=== PATIENT | male | born 1995 | race Caucasian/White ===

== ENCOUNTER 2016-12-27 13:17 | Emergency (ER) | payer OTHER ==
--- NOTE | ~2016-12-27 | CR126 ---
[facility]. [facility] A Service [facility] RADIOLOGY TEXT RESULTS PATIENT: RENO THORNE LOCATION: SED : [birth year] UNIT #: [id number] AGE: [address]: Josiane Kam APRN SEX: M ORDER DR: [id number] [place] [id number] E MR#: [id number] Acc #: [id number] NAME: RENO THORNE : 1995 SEX: M STUDY DATE/TIME: 12/27/2016 13:30 UNIT: SED ROOM: STUDY DESCRIPTION: CR Foot Complete Min 3 View Lt Attending Physician: Josiane Kam A.P.R.N. Ordering Physician: Josiane Kam A.P.R.N. Primary Care Physician: Tomas Troo Jr.PReneeRDonald MEDICAL IMAGING REPORT This report is preliminary unless electronic signature is present. EXAM Left foot. DATE OF EXAM 12/27/2016 HISTORY 21-year-old male with left foot pain, status post laceration today. Evaluate for foreign body. COMPARISON None. FINDINGS 3 views of the left foot demonstrate no radiopaque foreign bodies. No soft tissue gas. No acute bony abnormality. IMPRESSION 1. No radiopaque foreign bodies. No soft tissue gas. 2. No acute bony abnormality. Dictated by... Ziyad Frye M.D. THIS IS AN ELECTRONICALLY VERIFIED REPORT Ziyad Frye M.D. at 12/27/2016 5:02 PM RITIKA/yaneth TD: 12/27/2016 15:17 JOB #: [id number] MEDICAL IMAGING REPORT [facility] A Service [facility] RADIOLOGY TEXT RESULTS PATIENT: RENO THORNE LOCATION: SED : [birth year] UNIT #: [id number] AGE: [address]: Josiane Kam APRN SEX: M ORDER DR: Page 1 of 1
[~2016-12-27 13:17] MED LIST: ADDERALL; ADVAIR 1001 DISK W/D; ALBUTEROL 0.5ML; ALBUTEROL17 GM; CELEXA PO; CLARITIN10 MG; CLOTRIMAZOLE30 ML TOP; IBUPROFEN PO; KEFLEX500 M1 PO; MULTI-DAY VITAM1 TAB; NASONEX17 GM; NO MEDICATIONS; PHENERGAN PO; PULMICORT0.25 MG/2; ROBAXIN PO; SINGULAIR; SINGULAIR PO; SYMBICORT80; TOPAMAX; TRAZODONE PO; VIBRAMYCIN100 M1 PO; VOLTAREN75 MG PO; ZANTAC; ZYRTEC10 M2 PO
== END 2016-12-27 15:40 | disposition home or self-care (01) ==
LOC: SED 13:17
DX: S91.312A Laceration without foreign body, left foot, initial encounter (principal); H66.91 Otitis media, unspecified, right ear; Z88.2 Allergy status to sulfonamides; Z88.8 Allergy status to other drugs, medicaments and biological substances; W25.XXXA Contact with sharp glass, initial encounter; Y92.009 Unspecified place in unspecified non-institutional (private) residence as the place of occurrence of the external cause
CPT/HCPCS: 12002; 73630; 99283